=== PATIENT | female | born 1960 | race Caucasian/White ===

== ENCOUNTER → 2022-03-31 | Outpatient (CLI) | payer BC | LOC: KOH-I 08:36 → US 09:15 → KOH-I 09:15 | DX: K76.0 Fatty (change of) liver, not elsewhere classified (principal); K30 Functional dyspepsia; Z86.010 Personal history of colon polyps; Z88.0 Allergy status to penicillin; R93.2 Abnormal findings on diagnostic imaging of liver and biliary tract | CPT/HCPCS: 76705 ==